=== PATIENT | female | born 1995 | race Caucasian/White ===

== ENCOUNTER → 2016-09-01 | Outpatient (CLI) | payer OTHER ==
[~2016-09-01] MED LIST: COLACE 100MG C100 MG PO; CRANBERRY400 MG PO; NORCO 7.5-3251 EACH PO; PAXIL10 MG PO; POTASSIUM99 M1 PO; SRONYX 0.10-0.1 EACH PO; VITAMIN B-121000 MCG PO; VITAMIN D1000 UNIT PO; ZANTAC300 MG PO; ZOFRAN4 MG PO; ZYRTEC10 MG PO
== END ==
LOC: KOH-I 08:31
DX: R10.9 Unspecified abdominal pain (principal)
CPT/HCPCS: 76700

== ENCOUNTER → 2016-10-12 | Outpatient (CLI) | payer OTHER | LOC: NM 12:20 | DX: R10.9 Unspecified abdominal pain (principal); R93.2 Abnormal findings on diagnostic imaging of liver and biliary tract | CPT/HCPCS: 78226; A9537 ==